=== PATIENT | male | born 1935 | race Caucasian/White ===

== ENCOUNTER 2017-12-03 21:05 | Emergency (ER) | payer OTHER ==
[2017-12-03 21:17] VITALS: TEMP 98.2
--- NOTE | 2017-12-03 22:02 | EDPHY ---
H & P Stated Complaint: FACIAL LAC/ FALL Time Seen by Provider: 12/03/17 21:15 HPI/ROS: HPI CHIEF COMPLAINT: Mechanical trip and fall, multiple facial lacerations HISTORY OF PRESENT ILLNESS: Patient very pleasant 82-year-old male he presents emergency room by private vehicle with his and daughter, was getting out of the car and had a mechanical trip and fall he fell on both knees and then had head strike. He has multiple facial lacerations. He denies any neck pain or headache. He does complain of some mild facial discomfort. Unsure of tetanus shot is up-to-date. Past Medical History: Hypertension Past Surgical History: Denies recent surgery Social History: Denies drug use alcohol tobacco. Resides locally. Family History: Noncontributory ROS REVIEW OF SYSTEMS: A comprehensive 10 point review of systems is otherwise negative aside from elements mentioned in the history of present illness. Exam Constitutional appears well nontoxic triage nursing summary reviewed, vital signs reviewed, awake/alert. Eyes normal conjunctivae and sclera, EOMI, PERRLA. HENT head/neck: Periorbital swelling bilaterally, worse on the left than right, left cheek swelling, hematoma present. Additionally the multiple facial lacerations. There is a left eyebrow laceration is 3 cm in horizontal length. Additionally there is a left maxillary cheek laceration 2 cm in horizontal length. Additionally intraorally on the upper lip there is an intraoral 3 cm lip laceration. Frenulum intact. Dentition intact. No midline cervical spine pain, no neck pain or tenderness moist mucus membranes, no epistaxis, neck supple/ no meningismus, no raccoon eyes. Respiratory clear to auscultation bilaterally, normal breath sounds, no respiratory distress, no wheezing. Cardiovascular rate normal, regular rhythm, no murmur, no edema, distal pulses normal. Gastrointestinal soft, non-tender, no rebound, no guarding, normal bowel sounds, no distension, no pulsatile mass. Genitourinary no CVA tenderness. Musculoskeletal no midline vertebral tenderness, full range of motion, no calf swelling, no tenderness of extremities, no meningismus, good pulses, neurovascularly intact. Skin pink, warm, & dry, no rash, skin atraumatic. Neurologic awake, alert and oriented x 3, AAOx3, moves all 4 extremities equally, motor intact, sensory intact, CN II-XII intact, normal cerebellar, normal vision, normal speech. Psychiatric normal mood/affect. Heme/Lymph/Immune no lymphadenopathy. Differential Diagnosis: Includes but is not limited to in a particular order multiple facial laceration, soft tissue injury, multiple facial lacerations Medical Decision Making: Plan for this patient CT scan head, neck, face for trauma, additionally will update his tetanus shot. Additionally will close his multiple facial lacerations. Re-evaluation: Laceration Repair Procedure: Verbal Consent was obtained, Under sterile conditions, The patient had lidocaine with epinephrine used approximately 3ccs to local anesthetize the Left eyebrow 3CM horizontal Laceration. The wound was copiously irrigated with sterile fluid, the wound was explored for foreign bodies there were none visualized, the wound was explored with a sterile glove to the base. There are no deep structures involved, including no arterial injury. TWO 6.O PROLENE interrupted Sutures were placed in this patient's laceration. He had good close approximation of the wound edges. He Tolerated this well. Laceration Repair Procedure: Verbal Consent was obtained, Under sterile conditions, The patient had lidocaine with epinephrine used approximately 2ccs to local anesthetize the LEFT MAX SINUS 3CM horizontal Laceration. The wound was copiously irrigated with sterile fluid, the wound was explored for foreign bodies there were none visualized, the wound was explored with a sterile glove to the base. There are no deep structures involved, including no arterial injury. 6.O PROLENE TWO interrupted Sutures were placed in this patient's laceration. He had good close approximation of the wound edges. He Tolerated this well. Laceration Repair Procedure: Verbal Consent was obtained, Under sterile conditions, The patient had lidocaine with epinephrine used approximately 3ccs to local anesthetize the INTR-ORAL 2CM Laceration. The wound was copiously irrigated with sterile fluid, the wound was explored for foreign bodies there were none visualized, the wound was explored with a sterile glove to the base. There are no deep structures involved, including no arterial injury. ONE 5.O absorbable interrupted Sutures were placed in this patient's laceration. He had good close approximation of the wound edges. He Tolerated this well. CT scan of the head, neck, face are negative for acute bleed or significant traumatic injury. Possible small nasal bone fracture. Otherwise unremarkable. Patient's wounds have been dressed in clean. Sutures to be removed in 7 days he understands. Return precautions discussed. Source: Patient - Personal History Current Tetanus Diphtheria and Acellular Pertussis (TDAP): Unsure - Medical/Surgical History Hx Asthma: No Hx Chronic Respiratory Disease: No Hx Diabetes: No Hx Cardiac Disease: No Hx Renal Disease: No Hx Cirrhosis: No Hx Alcoholism: No Hx HIV/AIDS: No Hx Splenectomy or Spleen Trauma: No Other PMH: HIGH CHOL - Social History Smoking Status: Never smoked Constitutional: Initial Vital Signs Temperature (C) 36.8 C 12/03/17 21:14 Heart Rate 64 12/03/17 21:14 Respiratory Rate 18 12/03/17 21:14 Blood Pressure 140/63 H 12/03/17 21:14 O2 Sat (%) 95 12/03/17 21:14 O2 Delivery Mode Room Air Allergies/Adverse Reactions: No Known Allergies Allergy (Unverified 12/03/17 21:13) Home Medications: Medication Instructions Recorded SIMVASTATIN 12/03/17 Medical Decision Making - Data Points Medications Given: Discontinued Medications Diphtheria/Tetanus/Acell Pertussis (Boostrix) 0.5 ml IM .ONCE ONE Stop: 12/03/17 22:22 Last Admin: 12/03/17 22:45 Dose: 0.5 ml Departure - Departure Disposition: Home, Routine, Self-Care Clinical Impression: Facial laceration Qualifiers: Encounter type: initial encounter Qualified Code(s): S01.81XA - Laceration without foreign body of other part of head, initial encounter Condition: Good Instructions: Care For Your Stitches (ED), Laceration (ED) Additional Instructions: 1. Your sutures need to be removed in 7 days. 2. Return emergency room if you have any further questions or concerns, facial swelling, severe headache. Referrals: Jayson Gray MD [Primary Care Provider] - As per Instructions
[2017-12-03] MEDS ORDERED: TDAP ADULT 0.5 ML INJ (BOOSTRIX) IM ONE (22:21)
[2017-12-03] MEDS ORDERED: ACETAMINOPHEN 500 MG TAB PO ONE (23:00)
[2017-12-03 23:42] VITALS: BP 147/66; PULSE 47; RESP 16; O2SAT 93
== END 2017-12-03 23:42 | disposition home or self-care (01) ==
PROC: 0CQ0XZZ Repair Upper Lip, External Approach (ICD-10-PCS; principal; 2017-12-03)
PROC: 0HQ1XZZ Repair Face Skin, External Approach (ICD-10-PCS; principal; 2017-12-03)
PROC: 09QKXZZ Repair Nasal Mucosa and Soft Tissue, External Approach (ICD-10-PCS; principal; 2017-12-03)
DX: S01.112A Laceration without foreign body of left eyelid and periocular area, initial encounter (principal); S01.21XA Laceration without foreign body of nose, initial encounter; S01.512A Laceration without foreign body of oral cavity, initial encounter; I10 Essential (primary) hypertension; Z23 Encounter for immunization; W01.198A Fall on same level from slipping, tripping and stumbling with subsequent striking against other object, initial encounter; Y99.8 Other external cause status; Y93.89 Activity, other specified